=== PATIENT | male | born 1940 | race Caucasian/White ===

== ENCOUNTER 2017-06-23 10:23 | Inpatient (IN) ==
[2017-06-23] MEDS ORDERED: BUDESONIDE 0.5 MG/2 ML NEB RESP TX SCH (12:00)
[2017-06-23] MEDS: methylPREDNISolone SOD SUC 125 MG/2 ML VIAL IV SCH ×2 (12:30→18:03)
[2017-06-23] MEDS ORDERED: HYDROcod/ACETAMIN 7.5-325 MG/15 ML UDCUP PO PRN (12:31)
[2017-06-23 12:58] LABS: Basophils # 0.1 10*3/uL (0.0-0.2); Basophils % 0.4 % (0.0-0.8); Eosinophils # 0.3 10*3/uL (0.0-0.87); Eosinophils % 2.6 % (0.00-10.9); Hemoglobin 14.7 GM/DL (14.0-18.0); Immature Granulocytes % 0.4 %; Immature Granulocytes Absolute 0.05 #; Lymphocytes # 2.8 10*3/uL (1.4-4.0); Lymphocytes % 23.5 % (21.2-54.2); Mean Corpuscular HGB Conc 35.9 GM/DL (32-36); Mean Corpuscular Hemoglobin 34 PG (27-34); Mean Corpuscular Volume 95.1 FL (87-102); Mean Platelet Volume 8.9 FL (9.6-12.0); Monocytes # 0.9 10*3/uL (0.11-0.8); Monocytes % 7.3 % (1.7-12.7); Neutrophils # 7.8 10*3/uL (1.4-7.4); Neutrophils % 65.8 % (38.7-73.9); Platelet Count 176 T/CUMM (130-400); Red Blood Count 4.31 MC/CUMM (3.8-5.5); White Blood Count 11.8 T/CUMM (4-12)
[2017-06-23] MEDS: SODIUM CHLORIDE 0.45% 1,000 ML IV SCH (13:00)
[2017-06-23 13:29] LABS: Albumin 3.2 G/DL (3.4-5.0); Bilirubin,Total 0.6 MG/DL (0.2-1.0); Calcium 8.5 MG/DL (8.5-10.1); Osmolality,Calculated 280.5 MOS/KG (273-304); Potassium 3.6 MMOL/L (3.5-5.1); Total Protein 7.3 G/DL (6.4-8.3)
[2017-06-23] MEDS: PIPERACILLIN/TAZOBACTAM 3,375 MG in SODIUM CHLORIDE 0.9% 100 ML IV SCH ×2 (14:37→21:48)
[2017-06-23] MEDS: POTASSIUM IODIDE ORAL SOLN 1,000 MG/ML BOTTLE PO SCH ×3 (14:37→21:47)
[2017-06-23] MEDS ORDERED: GLUCAGON 1 MG VIAL IM PRN ×2 (15:56→21:16)
[2017-06-23] MEDS ORDERED: DEXTROSE 50% 25 GM/50 ML VIAL IV PRN ×2 (15:56→21:16)
[2017-06-23] MEDS ORDERED: INSULIN REGULAR 100 UNIT/ML SUBCUT SCH (16:30)
[2017-06-23] MEDS: LEVALBUTEROL 1.25 MG/3 ML NEB RESP TX PRN (20:16)
[2017-06-23] MEDS: GABAPENTIN 300 MG CAPSULE PO SCH (21:47)
[2017-06-23] MEDS: BUDESONIDE/FORMOTEROL 160-4.5 INHALER 6 GM INH SCH (21:47)
[2017-06-23] MEDS: TRAVOPROST 0.004% OPH SOLN 2.5 ML BOTTLE BOTH EYES SCH (21:47)
[2017-06-23] MEDS: Nintedanib Esylate [Ofev] 150 MG PO SCH (22:04)
[2017-06-23] MEDS: INSULIN REGULAR 100 UNIT/ML SUBCUT SCH (22:17)
[2017-06-24] MEDS: methylPREDNISolone SOD SUC 125 MG/2 ML VIAL IV SCH ×5 (00:16→23:01)
[2017-06-24] MEDS: PIPERACILLIN/TAZOBACTAM 3,375 MG in SODIUM CHLORIDE 0.9% 100 ML IV SCH ×3 (06:18→21:23)
[2017-06-24] MEDS: SODIUM CHLORIDE 0.45% 1,000 ML IV SCH ×2 (06:21→16:20)
[2017-06-24] MEDS ORDERED: INSULIN REGULAR 100 UNIT/ML SUBCUT SCH (07:30)
[2017-06-24] MEDS: Nintedanib Esylate [Ofev] 150 MG PO SCH ×2 (08:42→20:23)
[2017-06-24] MEDS: GABAPENTIN 300 MG CAPSULE PO SCH ×3 (08:42→20:19)
[2017-06-24] MEDS: BUDESONIDE/FORMOTEROL 160-4.5 INHALER 6 GM INH SCH ×2 (08:43→20:21)
[2017-06-24] MEDS: FLUTICASONE 50 MCG NASAL SPRAY 16 GM BOTTLE BOTH NARES SCH (08:44)
[2017-06-24] MEDS: POTASSIUM IODIDE ORAL SOLN 1,000 MG/ML BOTTLE PO SCH ×4 (08:44→20:21)
[2017-06-24] MEDS: INSULIN REGULAR 100 UNIT/ML SUBCUT SCH ×4 (08:44→21:21)
[2017-06-24] MEDS ORDERED: ALFUZOSIN 10 MG TABLET PO SCH ×2 (09:00→21:00)
[2017-06-24] MEDS ORDERED: LACTULOSE 20 GM/30 ML UDCUP PO PRN (09:46)
[2017-06-24] MEDS: LEVALBUTEROL 1.25 MG/3 ML NEB RESP TX PRN (16:28)
[2017-06-24] MEDS: TRAVOPROST 0.004% OPH SOLN 2.5 ML BOTTLE BOTH EYES SCH (20:21)
[2017-06-25] MEDS: PIPERACILLIN/TAZOBACTAM 3,375 MG in SODIUM CHLORIDE 0.9% 100 ML IV SCH (05:31)
[2017-06-25] MEDS: INSULIN REGULAR 100 UNIT/ML SUBCUT SCH ×2 (08:16→11:05)
[2017-06-25 08:25] VITALS: BP 118/71
[2017-06-25] MEDS: GABAPENTIN 300 MG CAPSULE PO SCH (08:35)
[2017-06-25] MEDS: Nintedanib Esylate [Ofev] 150 MG PO SCH (08:37)
[2017-06-25] MEDS: BUDESONIDE/FORMOTEROL 160-4.5 INHALER 6 GM INH SCH (08:37)
[2017-06-25] MEDS: FLUTICASONE 50 MCG NASAL SPRAY 16 GM BOTTLE BOTH NARES SCH (08:39)
[2017-06-25] MEDS: methylPREDNISolone SOD SUC 125 MG/2 ML VIAL IV SCH (08:41)
[2017-06-25] MEDS: POTASSIUM IODIDE ORAL SOLN 1,000 MG/ML BOTTLE PO SCH ×2 (08:46→08:47)
[2017-06-25] MEDS: LEVALBUTEROL 1.25 MG/3 ML NEB RESP TX PRN (09:58)
== END 2017-06-25 11:09 | disposition home or self-care (01) | DRG 198 ==
LOC: N.5E 12:26
PROVIDERS: ADMIT Internal Medicine Pulmonary Disease; ATTEND Internal Medicine Pulmonary Disease

== ENCOUNTER 2017-10-06 11:36 | Inpatient (IN) ==
[2017-10-06] MEDS ORDERED: methylPREDNISolone SOD SUC 125 MG/2 ML VIAL IV STA ×2 (11:39→13:46)
[2017-10-06] MEDS ORDERED: methylPREDNISolone SOD SUC 125 MG/2 ML VIAL ONE (11:41)
[2017-10-06] MEDS ORDERED: SODIUM CHLORIDE 0.9% 500 ML IV STA (11:43)
[2017-10-06 11:47] LABS: Basophils # 0.1 10*3/uL (0.0-0.2); Basophils % 0.3 % (0.0-0.8); Eosinophils # 0.2 10*3/uL (0.0-0.87); Eosinophils % 1.3 % (0.00-10.9); Hematocrit 40.7 VOL% (42.0-52.0); Hemoglobin 13.6 GM/DL (14.0-18.0); Immature Granulocytes % 0.7 %; Immature Granulocytes Absolute 0.13 #; Lymphocytes # 2.2 10*3/uL (1.4-4.0); Lymphocytes % 11.9 % (21.2-54.2); Mean Corpuscular HGB Conc 33.4 GM/DL (32-36); Mean Corpuscular Hemoglobin 35 PG (27-34); Mean Corpuscular Volume 104.1 FL (87-102); Mean Platelet Volume 8.4 FL (9.6-12.0); Monocytes # 0.9 10*3/uL (0.11-0.8); Monocytes % 4.7 % (1.7-12.7); Neutrophils # 14.9 10*3/uL (1.4-7.4); Neutrophils % 81.1 % (38.7-73.9); Platelet Count 193 T/CUMM (130-400); Red Blood Count 3.91 MC/CUMM (3.8-5.5); Red Cell Distribution Width 12.2 % (9.3-17.3); White Blood Count 18.4 T/CUMM (4-12)
[2017-10-06] MEDS ORDERED: PIPERACILLIN/TAZOBACTAM 3,375 MG in SODIUM CHLORIDE 0.9% 100 ML IV STA (11:47)
[2017-10-06] MEDS ORDERED: PIPERACILLIN/TAZOBACTAM 3,375 MG VIAL IV ONE (11:52)
[2017-10-06] MEDS ORDERED: ALBUTEROL NEB SOLN 5 MG/ML 20 ML/BOTTLE RESP TX SCH (12:00)
[2017-10-06 12:02] LABS: PT Patient Result 10.4 SECS; Partial Thromboplastin Time 23.9 SECS (0-40)
[2017-10-06 12:12] LABS: Alanine Aminotransferase 26 U/L (16-61); Albumin 3.1 G/DL (3.4-5.0); Alkaline Phosphatase 127 U/L (45-117); Aspartate Amino Transferase 29 U/L (0-37); Blood Urea Nitrogen 18 MG/DL (7-18); Calcium 8.5 MG/DL (8.5-10.1); Glucose 82 MG/DL (74-106); Osmolality,Calculated 275.7 MOS/KG (273-304); Potassium 4.3 MMOL/L (3.5-5.1); Sodium 138 MMOL/L (136-145); Total Protein 6.5 G/DL (6.4-8.3); Troponin I Only < 0.015 NG/ML (0.00-0.045)
[2017-10-06 12:24] LABS: ABG Base Excess 5.1 MMOL/L (-2.5-2.5); ABG HCO3 28.6 MMOL/L (20-26); ABG Oxygen Saturation 94.3 % (95-100); ABG PH 7.494 (7.35-7.45); ABG PO2 69.4 MM HG (80-95); ABG TCO2 29.7 MMOL/L (23-27)
[2017-10-06] MEDS ORDERED: ACETAMINOPHEN 500 MG TABLET ONE (12:31)
[2017-10-06 12:32] LABS: Apearance,Urine Slightly Hazy (Clear); Bilirubin,Urine Negative (Negative); Blood, Urine Negative (Negative); Glucose,Urine (UA) Negative (Negative); Ketones,Urine Negative (Negative); Mucus,Urine Occasional /LPF (Occasional); Nitrite,Urine Negative (Negative); Protein,Urine Negative; RBC,Urine 1 /HPF (0-4); Squamous Epithelial Cell,Urine Occasional /HPF (0-10); Urine Color Yellow (Yellow); Urine Specific Gravity 1.014 (1.001-1.035); WBC,Urine <1 /HPF (0-6)
[2017-10-06] MEDS ORDERED: SODIUM CHLORIDE 0.9% IV ONE (12:42)
[2017-10-06] MEDS ORDERED: AMINOPHYLLINE IV ONE (12:42)
[2017-10-06] MEDS ORDERED: AMINOPHYLLINE 500 MG in SODIUM CHLORIDE 0.9% 480 ML IV SCH (13:00)
[2017-10-06] MEDS ORDERED: ACETAMINOPHEN 500 MG TABLET PO STA (13:46)
[2017-10-06] MEDS ORDERED: ACETAMINOPHEN 325 MG TABLET PO PRN (14:42)
[2017-10-06] MEDS ORDERED: ALBUTEROL 2.5 MG/3 ML NEB RESP TX SCH (15:00)
[2017-10-06] MEDS: SODIUM CHLORIDE 0.9% 1,000 ML IV SCH (15:15)
[2017-10-06] MEDS: AMINOPHYLLINE 500 MG in SODIUM CHLORIDE 0.9% 480 ML IV SCH (15:16)
[2017-10-06] MEDS: ENOXAPARIN 60 MG/0.6 ML SYRINGE SUBCUT SCH (15:44)
[2017-10-06] MEDS: POTASSIUM IODIDE ORAL SOLN 1,000 MG/ML BOTTLE PO SCH ×2 (18:23→21:00)
[2017-10-06] MEDS: ALBUTEROL/IPRATROPIUM 3 ML NEB RESP TX SCH (19:24)
[2017-10-06 20:17] LABS: Troponin I Only 0.041 NG/ML (0.00-0.045)
[2017-10-06] MEDS: DOCUSATE SODIUM 100 MG CAPSULE PO SCH (20:43)
[2017-10-06] MEDS: TRAVOPROST 0.004% OPH SOLN 2.5 ML BOTTLE BOTH EYES SCH (20:43)
[2017-10-06] MEDS: methylPREDNISolone SOD SUC 125 MG/2 ML VIAL IV SCH (20:44)
[2017-10-06] MEDS: PIPERACILLIN/TAZOBACTAM 3,375 MG in SODIUM CHLORIDE 0.9% 100 ML IV SCH (21:05)
[2017-10-07] MEDS: ALBUTEROL/IPRATROPIUM 3 ML NEB RESP TX SCH ×4 (00:41→18:47)
[2017-10-07 03:27] LABS: Basophils % 0.1 % (0.0-0.8); Hematocrit 31.3 VOL% (42.0-52.0); Hemoglobin 11.1 GM/DL (14.0-18.0); Immature Granulocytes % 1.1 %; Immature Granulocytes Absolute 0.14 #; Lymphocytes # 0.3 10*3/uL (1.4-4.0); Mean Corpuscular HGB Conc 35.5 GM/DL (32-36); Mean Corpuscular Hemoglobin 36 PG (27-34); Mean Platelet Volume 8.8 FL (9.6-12.0); Monocytes # 0.2 10*3/uL (0.11-0.8); Monocytes % 1.1 % (1.7-12.7); Neutrophils # 12.7 10*3/uL (1.4-7.4); Neutrophils % 95.7 % (38.7-73.9); Platelet Count 138 T/CUMM (130-400); Red Cell Distribution Width 11.9 % (9.3-17.3); White Blood Count 13.2 T/CUMM (4-12)
[2017-10-07] MEDS: methylPREDNISolone SOD SUC 125 MG/2 ML VIAL IV SCH ×3 (03:48→21:05)
[2017-10-07 03:50] LABS: Calcium 7.8 MG/DL (8.5-10.1); Osmolality,Calculated 285.3 MOS/KG (273-304); Potassium 3.5 MMOL/L (3.5-5.1)
[2017-10-07 03:53] LABS: Troponin I Only 0.034 NG/ML (0.00-0.045)
[2017-10-07 04:32] LABS: Band Neutrophils 3 % (0-10); Lymphocytes 4 % (20-55); Macrocytosis 3+; Platelet Estimate Normal; Segmented Neutrophils 93 % (50-85); Total Cells Counted 100
[2017-10-07] MEDS: PIPERACILLIN/TAZOBACTAM 3,375 MG in SODIUM CHLORIDE 0.9% 100 ML IV SCH ×3 (05:50→23:21)
[2017-10-07] MEDS: SODIUM CHLORIDE 0.9% 1,000 ML IV SCH ×2 (05:50→23:20)
[2017-10-07] MEDS: POTASSIUM IODIDE ORAL SOLN 1,000 MG/ML BOTTLE PO SCH ×5 (05:51→21:04)
[2017-10-07] MEDS: PANTOPRAZOLE 40 MG TABLET PO SCH (08:33)
[2017-10-07] MEDS: DOCUSATE SODIUM 100 MG CAPSULE PO SCH ×2 (08:34→21:04)
[2017-10-07] MEDS ORDERED: TAMSULOSIN 0.4 MG CAPSULE PO SCH (09:00)
[2017-10-07] MEDS: BUDESONIDE 0.5 MG/2 ML NEB RESP TX SCH ×2 (09:33→19:48)
[2017-10-07 12:04] LABS: Troponin I Only 0.024 NG/ML (0.00-0.045)
[2017-10-07] MEDS: ENOXAPARIN 60 MG/0.6 ML SYRINGE SUBCUT SCH (14:19)
[2017-10-07] MEDS: AMINOPHYLLINE 500 MG in SODIUM CHLORIDE 0.9% 480 ML IV SCH (16:50)
[2017-10-07] MEDS ORDERED: ENOXAPARIN 30 MG/0.3 ML SYRINGE SUBCUT SCH (17:30)
[2017-10-07] MEDS ORDERED: ALBUTEROL 0.63 MG/3 ML NEB RESP TX PRN (17:43)
[2017-10-07] MEDS ORDERED: LEVALBUTEROL 0.63 MG/3 ML NEB RESP TX PRN (18:40)
[2017-10-07 20:20] LABS: Free T4 (Free Thyroxine) 0.93 NG/DL (0.76-1.46); Thyroid Stimulating Hormone 0.702 uIU/ml (0.358-3.74)
[2017-10-07] MEDS ORDERED: VANCOMYCIN INJ 1,000 MG in SODIUM CHLORIDE 0.9% 250 ML IV ONE (21:00)
[2017-10-07] MEDS: METOPROLOL TARTRATE 25 MG TABLET PO SCH (21:03)
[2017-10-07] MEDS: TAMSULOSIN 0.4 MG CAPSULE PO SCH (21:04)
[2017-10-07] MEDS: TRAVOPROST 0.004% OPH SOLN 2.5 ML BOTTLE BOTH EYES SCH (21:04)
[2017-10-08] MEDS: ALBUTEROL/IPRATROPIUM 3 ML NEB RESP TX SCH ×5 (00:02→19:22)
[2017-10-08] MEDS ORDERED: MORPHINE 4 MG/1 ML VIAL IV ONE (00:52)
[2017-10-08] MEDS ORDERED: FUROSEMIDE 40 MG/4 ML VIAL IV ONE ×2 (01:49→09:00)
[2017-10-08] MEDS ORDERED: POTASSIUM PHOS/SOD PHOS POWDER 250 MG PACK PO ONE (03:28)
[2017-10-08] MEDS: methylPREDNISolone SOD SUC 125 MG/2 ML VIAL IV SCH ×3 (06:15→20:29)
[2017-10-08] MEDS: POTASSIUM IODIDE ORAL SOLN 1,000 MG/ML BOTTLE PO SCH ×5 (06:19→20:32)
[2017-10-08] MEDS: MORPHINE 4 MG/1 ML VIAL IV PRN ×9 (06:30→22:02)
[2017-10-08 07:01] LABS: Basophils % 0.1 % (0.0-0.8); Hematocrit 36.8 VOL% (42.0-52.0); Immature Granulocytes % 1.5 %; Immature Granulocytes Absolute 0.45 #; Lymphocytes # 0.5 10*3/uL (1.4-4.0); Lymphocytes % 1.7 % (21.2-54.2); Mean Corpuscular HGB Conc 35.3 GM/DL (32-36); Mean Corpuscular Hemoglobin 35 PG (27-34); Mean Platelet Volume 8.9 FL (9.6-12.0); Monocytes # 0.8 10*3/uL (0.11-0.8); Monocytes % 2.6 % (1.7-12.7); Neutrophils # 28.3 10*3/uL (1.4-7.4); Neutrophils % 94.1 % (38.7-73.9); Platelet Count 171 T/CUMM (130-400); Red Blood Count 3.68 MC/CUMM (3.8-5.5); Red Cell Distribution Width 11.9 % (9.3-17.3); White Blood Count 30.1 T/CUMM (4-12)
[2017-10-08] MEDS: BUDESONIDE 0.5 MG/2 ML NEB RESP TX SCH ×3 (07:22→19:22)
[2017-10-08 07:31] LABS: Giant Platelets Few; Hypochromasia 1+; Lymphocytes 4 % (20-55); Platelet Estimate Normal; Segmented Neutrophils 93 % (50-85); Total Cells Counted 100
[2017-10-08 07:33] LABS: Calcium 8.7 MG/DL (8.5-10.1); Osmolality,Calculated 281.4 MOS/KG (273-304); Potassium 2.9 MMOL/L (3.5-5.1)
[2017-10-08 07:36] LABS: Vancomycin,Peak 8.2 UG/ML (18-26); Vancomycin,Trough 8.2 UG/ML (10.0-20.0)
[2017-10-08] MEDS: PIPERACILLIN/TAZOBACTAM 3,375 MG in SODIUM CHLORIDE 0.9% 100 ML IV SCH ×2 (08:12→15:15)
[2017-10-08] MEDS ORDERED: POTASSIUM CHLORIDE RIDER 10 MEQ in PREMIX 1 EACH IV ONE (08:14)
[2017-10-08] MEDS ORDERED: MORPHINE 10 MG/1 ML VIAL IV PRN (08:15)
[2017-10-08] MEDS: VANCOMYCIN INJ 1,000 MG in SODIUM CHLORIDE 0.9% 250 ML IV SCH ×2 (08:55→20:40)
[2017-10-08] MEDS: PANTOPRAZOLE 40 MG TABLET PO SCH (08:56)
[2017-10-08] MEDS: POTASSIUM CHLORIDE 10 MEQ TABLET PO SCH ×3 (08:56→20:28)
[2017-10-08] MEDS: METOPROLOL TARTRATE 25 MG TABLET PO SCH (08:56)
[2017-10-08] MEDS: TAMSULOSIN 0.4 MG CAPSULE PO SCH ×3 (08:56→20:37)
[2017-10-08] MEDS: DOCUSATE SODIUM 100 MG CAPSULE PO SCH ×2 (08:56→20:28)
[2017-10-08] MEDS ORDERED: DIGOXIN 0.5 MG/2 ML AMP IV ONE ×2 (09:00→15:55)
[2017-10-08] MEDS: BISACODYL 5 MG TABLET PO SCH (09:00)
[2017-10-08] MEDS ORDERED: AMIKACIN 1,000 MG in SODIUM CHLORIDE 0.9% 100 ML IV SCH (09:30)
[2017-10-08] MEDS: TOBRAMYCIN IV SCH (12:59)
[2017-10-08] MEDS: SODIUM CHLORIDE 0.9% IV SCH (12:59)
[2017-10-08] MEDS: ENOXAPARIN 30 MG/0.3 ML SYRINGE SUBCUT SCH (13:05)
[2017-10-08] MEDS ORDERED: MORPHINE 4 MG/1 ML VIAL IV PRN (15:00)
[2017-10-08] MEDS: TRAVOPROST 0.004% OPH SOLN 2.5 ML BOTTLE BOTH EYES SCH (20:38)
[2017-10-09] MEDS: PIPERACILLIN/TAZOBACTAM 3,375 MG in SODIUM CHLORIDE 0.9% 100 ML IV SCH ×4 (00:11→23:09)
[2017-10-09] MEDS: ALBUTEROL/IPRATROPIUM 3 ML NEB RESP TX SCH ×3 (01:18→11:59)
[2017-10-09] MEDS: methylPREDNISolone SOD SUC 125 MG/2 ML VIAL IV SCH (03:10)
[2017-10-09] MEDS: LORazepam 0.5 MG TABLET PO PRN ×3 (05:02→23:04)
[2017-10-09] MEDS: MORPHINE 4 MG/1 ML VIAL IV PRN ×6 (05:03→19:51)
[2017-10-09] MEDS ORDERED: methylPREDNISolone SOD SUC 125 MG/2 ML VIAL IV SCH (05:04)
[2017-10-09 06:32] LABS: Albumin 2.5 G/DL (3.4-5.0); Bilirubin,Total 1.2 MG/DL (0.2-1.0); Calcium 8.7 MG/DL (8.5-10.1); Osmolality,Calculated 287.3 MOS/KG (273-304); Potassium 3.5 MMOL/L (3.5-5.1); Total Protein 5.7 G/DL (6.4-8.3)
[2017-10-09 06:44] LABS: Vancomycin,Trough 14.1 UG/ML (10.0-20.0)
[2017-10-09] MEDS: BUDESONIDE 0.5 MG/2 ML NEB RESP TX SCH ×2 (07:36→19:36)
[2017-10-09] MEDS: VANCOMYCIN INJ 1,000 MG in SODIUM CHLORIDE 0.9% 250 ML IV SCH ×2 (08:46→21:06)
[2017-10-09] MEDS: POTASSIUM CHLORIDE 10 MEQ TABLET PO SCH ×3 (08:46→20:55)
[2017-10-09] MEDS: BISACODYL 5 MG TABLET PO SCH (08:47)
[2017-10-09] MEDS: PANTOPRAZOLE 40 MG TABLET PO SCH (08:47)
[2017-10-09] MEDS: DOCUSATE SODIUM 100 MG CAPSULE PO SCH ×2 (08:47→20:54)
[2017-10-09] MEDS: POTASSIUM IODIDE ORAL SOLN 1,000 MG/ML BOTTLE PO SCH ×4 (08:48→20:55)
[2017-10-09] MEDS: methylPREDNISolone SOD SUC 40 MG/1 ML VIAL IV SCH ×2 (11:46→20:55)
[2017-10-09] MEDS ORDERED: ALBUTEROL/IPRATROPIUM 3 ML NEB RESP TX PRN (12:43)
[2017-10-09] MEDS: TOBRAMYCIN IV SCH (12:56)
[2017-10-09] MEDS: SODIUM CHLORIDE 0.9% IV SCH (12:56)
[2017-10-09] MEDS: DIGOXIN 0.125 MG TABLET PO SCH (14:04)
[2017-10-09] MEDS: ENOXAPARIN 30 MG/0.3 ML SYRINGE SUBCUT SCH (14:04)
[2017-10-09] MEDS: LEVALBUTEROL 0.63 MG/3 ML NEB RESP TX SCH ×3 (15:14→23:35)
[2017-10-09] MEDS: TAMSULOSIN 0.4 MG CAPSULE PO SCH (20:55)
[2017-10-09] MEDS: TRAVOPROST 0.004% OPH SOLN 2.5 ML BOTTLE BOTH EYES SCH (20:55)
[2017-10-10] MEDS: methylPREDNISolone SOD SUC 40 MG/1 ML VIAL IV SCH ×3 (03:04→20:46)
[2017-10-10] MEDS: LEVALBUTEROL 0.63 MG/3 ML NEB RESP TX SCH ×3 (03:06→12:37)
[2017-10-10] MEDS: LORazepam 0.5 MG TABLET PO PRN ×3 (03:20→20:46)
[2017-10-10] MEDS: MORPHINE 4 MG/1 ML VIAL IV PRN ×5 (03:22→21:05)
[2017-10-10 06:55] LABS: Basophils % 0.1 % (0.0-0.8); Immature Granulocytes % 1.1 %; Immature Granulocytes Absolute 0.15 #; Lymphocytes # 0.3 10*3/uL (1.4-4.0); Lymphocytes % 2.3 % (21.2-54.2); Mean Corpuscular HGB Conc 34.3 GM/DL (32-36); Mean Corpuscular Hemoglobin 35 PG (27-34); Mean Corpuscular Volume 100.6 FL (87-102); Mean Platelet Volume 8.7 FL (9.6-12.0); Monocytes # 0.3 10*3/uL (0.11-0.8); Neutrophils # 13.4 10*3/uL (1.4-7.4); Neutrophils % 94.5 % (38.7-73.9); Platelet Count 132 T/CUMM (130-400); Red Blood Count 3.48 MC/CUMM (3.8-5.5); Red Cell Distribution Width 11.6 % (9.3-17.3); White Blood Count 14.2 T/CUMM (4-12)
[2017-10-10] MEDS: BUDESONIDE 0.5 MG/2 ML NEB RESP TX SCH (07:04)
[2017-10-10 07:19] LABS: Band Neutrophils 1 % (0-10); Hypochromasia 1+; Lymphocytes 2 % (20-55); Platelet Estimate Adequate; Segmented Neutrophils 95 % (50-85); Total Cells Counted 100
[2017-10-10 07:26] LABS: Albumin 2.2 G/DL (3.4-5.0); Bilirubin,Total 1.1 MG/DL (0.2-1.0); Calcium 8.2 MG/DL (8.5-10.1); Osmolality,Calculated 284.3 MOS/KG (273-304); Potassium 4.2 MMOL/L (3.5-5.1); Total Protein 5.1 G/DL (6.4-8.3)
[2017-10-10] MEDS: VANCOMYCIN INJ 1,000 MG in SODIUM CHLORIDE 0.9% 250 ML IV SCH ×2 (09:11→20:46)
[2017-10-10] MEDS: POTASSIUM CHLORIDE 10 MEQ TABLET PO SCH ×3 (09:12→20:46)
[2017-10-10] MEDS: PANTOPRAZOLE 40 MG TABLET PO SCH (09:12)
[2017-10-10] MEDS: MULTIVITAMIN (CENTRUM) TABLET PO SCH (09:12)
[2017-10-10] MEDS: DOCUSATE SODIUM 100 MG CAPSULE PO SCH ×2 (09:13→20:45)
[2017-10-10] MEDS: POTASSIUM IODIDE ORAL SOLN 1,000 MG/ML BOTTLE PO SCH ×4 (09:13→20:47)
[2017-10-10] MEDS: BISACODYL 5 MG TABLET PO SCH (09:13)
[2017-10-10] MEDS: PIPERACILLIN/TAZOBACTAM 3,375 MG in SODIUM CHLORIDE 0.9% 100 ML IV SCH ×2 (09:21→16:56)
[2017-10-10] MEDS ORDERED: LEVALBUTEROL 0.63 MG/3 ML NEB RESP TX PRN (11:31)
[2017-10-10] MEDS: SODIUM CHLORIDE 0.9% IV SCH (12:14)
[2017-10-10] MEDS: TOBRAMYCIN IV SCH (12:14)
[2017-10-10] MEDS: fentaNYL 25 MCG/HR PATCH TRANSDERM SCH ×2 (13:22→14:38)
[2017-10-10] MEDS: DIGOXIN 0.125 MG TABLET PO SCH (13:22)
[2017-10-10] MEDS: ENOXAPARIN 30 MG/0.3 ML SYRINGE SUBCUT SCH (14:32)
[2017-10-10] MEDS: TAMSULOSIN 0.4 MG CAPSULE PO SCH (20:46)
[2017-10-10] MEDS: TRAVOPROST 0.004% OPH SOLN 2.5 ML BOTTLE BOTH EYES SCH (20:47)
[2017-10-11] MEDS: PIPERACILLIN/TAZOBACTAM 3,375 MG in SODIUM CHLORIDE 0.9% 100 ML IV SCH ×4 (00:08→23:12)
[2017-10-11] MEDS: methylPREDNISolone SOD SUC 40 MG/1 ML VIAL IV SCH ×3 (04:02→20:39)
[2017-10-11] MEDS: MORPHINE 4 MG/1 ML VIAL IV PRN ×5 (06:45→19:25)
[2017-10-11] MEDS: POTASSIUM IODIDE ORAL SOLN 1,000 MG/ML BOTTLE PO SCH ×4 (08:06→21:13)
[2017-10-11] MEDS: MULTIVITAMIN (CENTRUM) TABLET PO SCH (08:07)
[2017-10-11] MEDS: PANTOPRAZOLE 40 MG TABLET PO SCH ×2 (08:07→20:39)
[2017-10-11] MEDS: POTASSIUM CHLORIDE 10 MEQ TABLET PO SCH ×3 (08:08→20:39)
[2017-10-11] MEDS: DOCUSATE SODIUM 100 MG CAPSULE PO SCH ×2 (08:08→20:38)
[2017-10-11] MEDS: BISACODYL 5 MG TABLET PO SCH (08:14)
[2017-10-11] MEDS: VANCOMYCIN INJ 1,000 MG in SODIUM CHLORIDE 0.9% 250 ML IV SCH ×2 (08:42→20:39)
[2017-10-11 09:44] LABS: Calcium 8.5 MG/DL (8.5-10.1); Osmolality,Calculated 281.4 MOS/KG (273-304)
[2017-10-11 09:45] LABS: Potassium 4.5 MMOL/L (3.5-5.1)
[2017-10-11] MEDS: LORazepam 0.5 MG TABLET PO PRN ×2 (10:27→20:38)
[2017-10-11] MEDS: TOBRAMYCIN IV SCH (12:20)
[2017-10-11] MEDS: SODIUM CHLORIDE 0.9% IV SCH (12:20)
[2017-10-11] MEDS: ENOXAPARIN 30 MG/0.3 ML SYRINGE SUBCUT SCH (13:08)
[2017-10-11] MEDS: DIGOXIN 0.125 MG TABLET PO SCH (13:08)
[2017-10-11] MEDS ORDERED: ALUMINUM/MAGNES/SIMETH MAX STR 30 ML UDCUP PO PRN (16:02)
[2017-10-11] MEDS: TAMSULOSIN 0.4 MG CAPSULE PO SCH (20:39)
[2017-10-11] MEDS: TRAVOPROST 0.004% OPH SOLN 2.5 ML BOTTLE BOTH EYES SCH (20:46)
[2017-10-12] MEDS: methylPREDNISolone SOD SUC 40 MG/1 ML VIAL IV SCH ×2 (03:13→12:39)
[2017-10-12] MEDS: MORPHINE 4 MG/1 ML VIAL IV PRN ×6 (04:48→21:10)
[2017-10-12] MEDS: LORazepam 0.5 MG TABLET PO PRN ×3 (05:46→21:03)
[2017-10-12 07:01] LABS: Basophils % 0.2 % (0.0-0.8); Eosinophils % 0.1 % (0.00-10.9); Hematocrit 40.2 VOL% (42.0-52.0); Hemoglobin 13.8 GM/DL (14.0-18.0); Immature Granulocytes % 0.8 %; Immature Granulocytes Absolute 0.13 #; Lymphocytes # 0.4 10*3/uL (1.4-4.0); Lymphocytes % 2.6 % (21.2-54.2); Mean Corpuscular HGB Conc 34.3 GM/DL (32-36); Mean Corpuscular Hemoglobin 34 PG (27-34); Mean Platelet Volume 8.7 FL (9.6-12.0); Monocytes # 0.3 10*3/uL (0.11-0.8); Monocytes % 1.7 % (1.7-12.7); Neutrophils # 14.8 10*3/uL (1.4-7.4); Neutrophils % 94.6 % (38.7-73.9); Platelet Count 169 T/CUMM (130-400); Red Blood Count 4.02 MC/CUMM (3.8-5.5); Red Cell Distribution Width 11.4 % (9.3-17.3); White Blood Count 15.6 T/CUMM (4-12)
[2017-10-12 07:12] LABS: Calcium 8.1 MG/DL (8.5-10.1)
[2017-10-12 07:13] LABS: Albumin 2.4 G/DL (3.4-5.0); Bilirubin,Total 1.6 MG/DL (0.2-1.0); Osmolality,Calculated 281.4 MOS/KG (273-304); Potassium 4.3 MMOL/L (3.5-5.1); Total Protein 5.6 G/DL (6.4-8.3)
[2017-10-12 07:25] LABS: Tobramycin,Trough 0.5 UG/ML (<2.0); Vancomycin,Trough 16.8 UG/ML (10.0-20.0)
[2017-10-12 07:50] LABS: Band Neutrophils 1 % (0-10); Hypochromasia 1+; Lymphocytes 2 % (20-55); Ovalocytes Slight; Platelet Estimate Normal; Segmented Neutrophils 95 % (50-85); Total Cells Counted 100
[2017-10-12] MEDS ORDERED: LORazepam 0.5 MG TABLET PO PRN (09:08)
[2017-10-12] MEDS: POTASSIUM IODIDE ORAL SOLN 1,000 MG/ML BOTTLE PO SCH ×4 (09:11→21:02)
[2017-10-12] MEDS: PIPERACILLIN/TAZOBACTAM 3,375 MG in SODIUM CHLORIDE 0.9% 100 ML IV SCH ×2 (09:12→16:55)
[2017-10-12] MEDS: VANCOMYCIN INJ 1,000 MG in SODIUM CHLORIDE 0.9% 250 ML IV SCH (09:13)
[2017-10-12] MEDS: POTASSIUM CHLORIDE 10 MEQ TABLET PO SCH ×3 (09:14→21:02)
[2017-10-12] MEDS: MULTIVITAMIN (CENTRUM) TABLET PO SCH (09:14)
[2017-10-12] MEDS: PANTOPRAZOLE 40 MG TABLET PO SCH ×2 (09:14→21:02)
[2017-10-12] MEDS: BISACODYL 5 MG TABLET PO SCH (09:14)
[2017-10-12] MEDS: fentaNYL 12 MCG/HR PATCH TRANSDERM SCH (09:40)
[2017-10-12] MEDS: DOCUSATE SODIUM 100 MG CAPSULE PO SCH ×2 (11:19→20:56)
[2017-10-12] MEDS: LEVOFLOXACIN INJ 500 MG in PREMIX 1 EACH IV SCH (11:26)
[2017-10-12] MEDS: DIGOXIN 0.125 MG TABLET PO SCH (12:38)
[2017-10-12] MEDS ORDERED: LORazepam 0.5 MG TABLET PO SCH (13:00)
[2017-10-12] MEDS: ENOXAPARIN 30 MG/0.3 ML SYRINGE SUBCUT SCH (14:58)
[2017-10-12] MEDS: methylPREDNISolone SOD SUC 125 MG/2 ML VIAL IV SCH (21:02)
[2017-10-12] MEDS: ESCITALOPRAM 10 MG TABLET PO SCH (21:02)
[2017-10-12] MEDS: TRAVOPROST 0.004% OPH SOLN 2.5 ML BOTTLE BOTH EYES SCH (21:02)
[2017-10-12] MEDS: TAMSULOSIN 0.4 MG CAPSULE PO SCH (21:02)
[2017-10-13] MEDS: methylPREDNISolone SOD SUC 40 MG/1 ML VIAL IV SCH (01:16)
[2017-10-13] MEDS: LORazepam 0.5 MG TABLET PO PRN ×2 (05:34→18:46)
[2017-10-13] MEDS: methylPREDNISolone SOD SUC 125 MG/2 ML VIAL IV SCH ×3 (05:35→20:44)
[2017-10-13] MEDS: MORPHINE 4 MG/1 ML VIAL IV PRN ×3 (05:43→19:32)
[2017-10-13] MEDS: LEVOFLOXACIN INJ 500 MG in PREMIX 1 EACH IV SCH (08:21)
[2017-10-13] MEDS: PANTOPRAZOLE 40 MG TABLET PO SCH ×2 (08:21→20:41)
[2017-10-13] MEDS: DOCUSATE SODIUM 100 MG CAPSULE PO SCH ×2 (08:21→20:43)
[2017-10-13] MEDS: ESCITALOPRAM 10 MG TABLET PO SCH (08:21)
[2017-10-13] MEDS: POTASSIUM CHLORIDE 10 MEQ TABLET PO SCH ×3 (08:21→20:41)
[2017-10-13] MEDS: MULTIVITAMIN (CENTRUM) TABLET PO SCH (08:21)
[2017-10-13] MEDS: POTASSIUM IODIDE ORAL SOLN 1,000 MG/ML BOTTLE PO SCH ×4 (08:28→20:41)
[2017-10-13] MEDS: BISACODYL 5 MG TABLET PO SCH (08:29)
[2017-10-13] MEDS ORDERED: fentaNYL 25 MCG/HR PATCH TRANSDERM SCH (09:00)
[2017-10-13] MEDS: BISACODYL 10 MG SUPP RECTAL PRN (10:19)
[2017-10-13] MEDS ORDERED: MORPHINE 4 MG/1 ML VIAL IV ONE (10:39)
[2017-10-13] MEDS: ENOXAPARIN 30 MG/0.3 ML SYRINGE SUBCUT SCH (13:17)
[2017-10-13] MEDS: DIGOXIN 0.125 MG TABLET PO SCH (13:17)
[2017-10-13] MEDS: TAMSULOSIN 0.4 MG CAPSULE PO SCH (20:40)
[2017-10-13] MEDS: TRAVOPROST 0.004% OPH SOLN 2.5 ML BOTTLE BOTH EYES SCH (20:43)
[2017-10-14] MEDS: methylPREDNISolone SOD SUC 125 MG/2 ML VIAL IV SCH ×3 (04:21→20:13)
[2017-10-14] MEDS: MORPHINE 4 MG/1 ML VIAL IV PRN ×4 (04:54→20:16)
[2017-10-14] MEDS: LORazepam 0.5 MG TABLET PO PRN ×2 (06:24→18:00)
[2017-10-14 07:21] LABS: Basophils % 0.1 % (0.0-0.8); Hematocrit 40.1 VOL% (42.0-52.0); Immature Granulocytes % 1.7 %; Immature Granulocytes Absolute 0.28 #; Lymphocytes # 0.5 10*3/uL (1.4-4.0); Lymphocytes % 2.9 % (21.2-54.2); Mean Corpuscular HGB Conc 34.9 GM/DL (32-36); Mean Corpuscular Hemoglobin 35 PG (27-34); Mean Platelet Volume 8.8 FL (9.6-12.0); Monocytes # 0.4 10*3/uL (0.11-0.8); Monocytes % 2.2 % (1.7-12.7); Neutrophils # 15.4 10*3/uL (1.4-7.4); Neutrophils % 93.1 % (38.7-73.9); Platelet Count 212 T/CUMM (130-400); Red Blood Count 4.05 MC/CUMM (3.8-5.5); Red Cell Distribution Width 11.4 % (9.3-17.3); White Blood Count 16.5 T/CUMM (4-12)
[2017-10-14 07:40] LABS: Lymphocytes 2 % (20-55); Segmented Neutrophils 95 % (50-85); Total Cells Counted 100
[2017-10-14 07:41] LABS: Giant Platelets Few; Hypochromasia 1+; Ovalocytes Slight; Platelet Estimate Adequate
[2017-10-14 07:48] LABS: Calcium 8.6 MG/DL (8.5-10.1)
[2017-10-14 07:49] LABS: Osmolality,Calculated 278.7 MOS/KG (273-304); Potassium 4.4 MMOL/L (3.5-5.1)
[2017-10-14 08:00] LABS: Albumin 2.5 G/DL (3.4-5.0); Bilirubin,Total 0.6 MG/DL (0.2-1.0); Calcium 8.5 MG/DL (8.5-10.1); Osmolality,Calculated 277.8 MOS/KG (273-304); Potassium 4.4 MMOL/L (3.5-5.1); Total Protein 5.9 G/DL (6.4-8.3)
[2017-10-14] MEDS: POTASSIUM CHLORIDE 10 MEQ TABLET PO SCH ×2 (08:34→16:24)
[2017-10-14] MEDS: PANTOPRAZOLE 40 MG TABLET PO SCH ×2 (08:34→20:10)
[2017-10-14] MEDS: MULTIVITAMIN (CENTRUM) TABLET PO SCH (08:34)
[2017-10-14] MEDS: POTASSIUM IODIDE ORAL SOLN 1,000 MG/ML BOTTLE PO SCH ×4 (08:35→20:10)
[2017-10-14] MEDS: ESCITALOPRAM 10 MG TABLET PO SCH (08:35)
[2017-10-14] MEDS: BISACODYL 5 MG TABLET PO SCH (08:35)
[2017-10-14] MEDS: LEVOFLOXACIN INJ 500 MG in PREMIX 1 EACH IV SCH (08:35)
[2017-10-14] MEDS: DOCUSATE SODIUM 100 MG CAPSULE PO SCH ×2 (08:35→20:12)
[2017-10-14] MEDS: ONDANSETRON 4 MG/2 ML VIAL IV PRN (13:17)
[2017-10-14] MEDS: ENOXAPARIN 30 MG/0.3 ML SYRINGE SUBCUT SCH ×2 (13:18→16:24)
[2017-10-14] MEDS: DIGOXIN 0.125 MG TABLET PO SCH ×2 (13:29→16:23)
[2017-10-14] MEDS: TAMSULOSIN 0.4 MG CAPSULE PO SCH (20:10)
[2017-10-14] MEDS: TRAVOPROST 0.004% OPH SOLN 2.5 ML BOTTLE BOTH EYES SCH (20:12)
[2017-10-15] MEDS: LORazepam 0.5 MG TABLET PO PRN ×2 (04:08→20:10)
[2017-10-15] MEDS: methylPREDNISolone SOD SUC 125 MG/2 ML VIAL IV SCH ×3 (04:15→20:09)
[2017-10-15] MEDS: DOCUSATE SODIUM 100 MG CAPSULE PO SCH ×2 (09:14→20:10)
[2017-10-15] MEDS: BISACODYL 5 MG TABLET PO SCH (09:14)
[2017-10-15] MEDS: MULTIVITAMIN (CENTRUM) TABLET PO SCH (09:14)
[2017-10-15] MEDS: LEVOFLOXACIN INJ 500 MG in PREMIX 1 EACH IV SCH (09:14)
[2017-10-15] MEDS: PANTOPRAZOLE 40 MG TABLET PO SCH ×2 (09:14→20:10)
[2017-10-15] MEDS: ESCITALOPRAM 10 MG TABLET PO SCH (09:14)
[2017-10-15] MEDS: fentaNYL 12 MCG/HR PATCH TRANSDERM SCH (09:15)
[2017-10-15] MEDS: POTASSIUM IODIDE ORAL SOLN 1,000 MG/ML BOTTLE PO SCH ×4 (09:15→20:10)
[2017-10-15] MEDS: MORPHINE 4 MG/1 ML VIAL IV PRN ×3 (09:20→20:11)
[2017-10-15] MEDS: ONDANSETRON 4 MG/2 ML VIAL IV PRN (09:32)
[2017-10-15] MEDS: ENOXAPARIN 30 MG/0.3 ML SYRINGE SUBCUT SCH (14:29)
[2017-10-15] MEDS: TAMSULOSIN 0.4 MG CAPSULE PO SCH (20:10)
[2017-10-15] MEDS: TRAVOPROST 0.004% OPH SOLN 2.5 ML BOTTLE BOTH EYES SCH (20:11)
[2017-10-16] MEDS: methylPREDNISolone SOD SUC 125 MG/2 ML VIAL IV SCH ×3 (04:12→20:39)
[2017-10-16] MEDS: MORPHINE 4 MG/1 ML VIAL IV PRN ×2 (04:14→10:27)
[2017-10-16] MEDS: LORazepam 0.5 MG TABLET PO PRN ×3 (04:15→14:54)
[2017-10-16] MEDS: POTASSIUM IODIDE ORAL SOLN 1,000 MG/ML BOTTLE PO SCH ×4 (09:08→20:39)
[2017-10-16] MEDS: ESCITALOPRAM 10 MG TABLET PO SCH (09:09)
[2017-10-16] MEDS: MULTIVITAMIN (CENTRUM) TABLET PO SCH (09:10)
[2017-10-16] MEDS: PANTOPRAZOLE 40 MG TABLET PO SCH ×2 (09:10→20:39)
[2017-10-16] MEDS: BISACODYL 5 MG TABLET PO SCH (09:10)
[2017-10-16] MEDS: LEVOFLOXACIN INJ 500 MG in PREMIX 1 EACH IV SCH (09:15)
[2017-10-16] MEDS: DOCUSATE SODIUM 100 MG CAPSULE PO SCH ×2 (09:15→20:39)
[2017-10-16] MEDS: BISACODYL 10 MG SUPP RECTAL PRN (10:28)
[2017-10-16] MEDS: ENOXAPARIN 30 MG/0.3 ML SYRINGE SUBCUT SCH (13:51)
[2017-10-16] MEDS: TRAVOPROST 0.004% OPH SOLN 2.5 ML BOTTLE BOTH EYES SCH (20:39)
[2017-10-16] MEDS: TAMSULOSIN 0.4 MG CAPSULE PO SCH (20:39)
[2017-10-17] MEDS: LORazepam 0.5 MG TABLET PO PRN ×2 (00:32→10:59)
[2017-10-17] MEDS: MORPHINE 4 MG/1 ML VIAL IV PRN ×4 (03:27→18:39)
[2017-10-17 05:58] LABS: Basophils % 0.1 % (0.0-0.8); Hematocrit 39.2 VOL% (42.0-52.0); Hemoglobin 13.6 GM/DL (14.0-18.0); Immature Granulocytes % 2.1 %; Immature Granulocytes Absolute 0.38 #; Lymphocytes # 0.5 10*3/uL (1.4-4.0); Lymphocytes % 2.9 % (21.2-54.2); Mean Corpuscular HGB Conc 34.7 GM/DL (32-36); Mean Corpuscular Hemoglobin 34 PG (27-34); Mean Corpuscular Volume 97.5 FL (87-102); Monocytes # 0.6 10*3/uL (0.11-0.8); Monocytes % 3.4 % (1.7-12.7); Neutrophils # 16.9 10*3/uL (1.4-7.4); Neutrophils % 91.5 % (38.7-73.9); Platelet Count 208 T/CUMM (130-400); Red Blood Count 4.02 MC/CUMM (3.8-5.5); Red Cell Distribution Width 11.3 % (9.3-17.3); White Blood Count 18.5 T/CUMM (4-12)
[2017-10-17] MEDS: methylPREDNISolone SOD SUC 125 MG/2 ML VIAL IV SCH (06:05)
[2017-10-17 06:19] LABS: Albumin 2.3 G/DL (3.4-5.0); Bilirubin,Total 0.7 MG/DL (0.2-1.0); Calcium 8.4 MG/DL (8.5-10.1); Potassium 3.9 MMOL/L (3.5-5.1); Total Protein 5.4 G/DL (6.4-8.3)
[2017-10-17 06:22] LABS: Hypochromasia 2+; Lymphocytes 2 % (20-55); Macrocytosis 1+; Platelet Estimate Adequate; Segmented Neutrophils 93 % (50-85); Total Cells Counted 100
[2017-10-17] MEDS: MULTIVITAMIN (CENTRUM) TABLET PO SCH (08:43)
[2017-10-17] MEDS: DOCUSATE SODIUM 100 MG CAPSULE PO SCH ×2 (08:43→20:46)
[2017-10-17] MEDS: PANTOPRAZOLE 40 MG TABLET PO SCH ×2 (08:43→20:46)
[2017-10-17] MEDS: ESCITALOPRAM 10 MG TABLET PO SCH (08:43)
[2017-10-17] MEDS: BISACODYL 5 MG TABLET PO SCH (08:44)
[2017-10-17] MEDS: ONDANSETRON 4 MG/2 ML VIAL IV PRN ×2 (08:48→17:40)
[2017-10-17] MEDS: POTASSIUM IODIDE ORAL SOLN 1,000 MG/ML BOTTLE PO SCH ×4 (09:15→20:46)
[2017-10-17] MEDS ORDERED: methylPREDNISolone SOD SUC 40 MG/1 ML VIAL ONE (12:46)
[2017-10-17] MEDS: methylPREDNISolone SOD SUC 40 MG/1 ML VIAL IV SCH ×3 (12:50→21:28)
[2017-10-17] MEDS: ENOXAPARIN 30 MG/0.3 ML SYRINGE SUBCUT SCH ×2 (12:50→14:04)
[2017-10-17] MEDS ORDERED: LORazepam 2 MG/1 ML VIAL ONE (18:45)
[2017-10-17] MEDS: LORazepam 2 MG/1 ML VIAL IV PRN (18:50)
[2017-10-17] MEDS: TRAVOPROST 0.004% OPH SOLN 2.5 ML BOTTLE BOTH EYES SCH (20:46)
[2017-10-17] MEDS: TAMSULOSIN 0.4 MG CAPSULE PO SCH (20:46)
[2017-10-18] MEDS: MORPHINE 4 MG/1 ML VIAL IV PRN ×3 (04:24→17:19)
[2017-10-18] MEDS: LORazepam 2 MG/1 ML VIAL IV PRN ×3 (04:29→20:21)
[2017-10-18] MEDS: methylPREDNISolone SOD SUC 40 MG/1 ML VIAL IV SCH ×3 (05:13→22:26)
[2017-10-18] MEDS ORDERED: fentaNYL 25 MCG/HR PATCH TRANSDERM SCH (09:00)
[2017-10-18] MEDS: ESCITALOPRAM 10 MG TABLET PO SCH (09:14)
[2017-10-18] MEDS: PANTOPRAZOLE 40 MG TABLET PO SCH ×2 (09:14→20:16)
[2017-10-18] MEDS: MULTIVITAMIN (CENTRUM) TABLET PO SCH (09:14)
[2017-10-18] MEDS: BISACODYL 5 MG TABLET PO SCH (09:15)
[2017-10-18] MEDS: POTASSIUM IODIDE ORAL SOLN 1,000 MG/ML BOTTLE PO SCH ×4 (09:16→20:18)
[2017-10-18] MEDS: DOCUSATE SODIUM 100 MG CAPSULE PO SCH ×2 (09:22→20:18)
[2017-10-18] MEDS: ENOXAPARIN 30 MG/0.3 ML SYRINGE SUBCUT SCH (17:19)
[2017-10-18] MEDS: ONDANSETRON 4 MG/2 ML VIAL IV PRN (17:26)
[2017-10-18] MEDS: TAMSULOSIN 0.4 MG CAPSULE PO SCH (20:16)
[2017-10-18] MEDS: TRAVOPROST 0.004% OPH SOLN 2.5 ML BOTTLE BOTH EYES SCH (20:18)
[2017-10-19] MEDS: MORPHINE 4 MG/1 ML VIAL IV PRN ×4 (05:12→23:38)
[2017-10-19] MEDS: methylPREDNISolone SOD SUC 40 MG/1 ML VIAL IV SCH ×3 (05:41→21:07)
[2017-10-19] MEDS ORDERED: methylPREDNISolone SOD SUC 40 MG/1 ML VIAL IV SCH (07:00)
[2017-10-19] MEDS: DOCUSATE SODIUM 100 MG CAPSULE PO SCH ×2 (09:02→21:08)
[2017-10-19] MEDS: ESCITALOPRAM 10 MG TABLET PO SCH (09:11)
[2017-10-19] MEDS: POTASSIUM IODIDE ORAL SOLN 1,000 MG/ML BOTTLE PO SCH ×5 (09:11→21:00)
[2017-10-19] MEDS: MULTIVITAMIN (CENTRUM) TABLET PO SCH (09:11)
[2017-10-19] MEDS: BISACODYL 5 MG TABLET PO SCH (09:11)
[2017-10-19] MEDS: PANTOPRAZOLE 40 MG TABLET PO SCH ×2 (09:11→21:00)
[2017-10-19] MEDS: LORazepam 2 MG/1 ML VIAL IV PRN ×2 (13:50→23:42)
[2017-10-19] MEDS: TAMSULOSIN 0.4 MG CAPSULE PO SCH (21:00)
[2017-10-19] MEDS: TRAVOPROST 0.004% OPH SOLN 2.5 ML BOTTLE BOTH EYES SCH (21:06)
[2017-10-20] MEDS: methylPREDNISolone SOD SUC 40 MG/1 ML VIAL IV SCH ×2 (05:50→15:49)
[2017-10-20] MEDS ORDERED: MORPHINE 4 MG/1 ML VIAL IV PRN ×2 (06:00→12:08)
[2017-10-20] MEDS: LORazepam 2 MG/1 ML VIAL IV PRN ×3 (06:41→23:26)
[2017-10-20] MEDS: MORPHINE 4 MG/1 ML VIAL IV SCH ×4 (09:19→20:59)
[2017-10-20] MEDS: DOCUSATE SODIUM 100 MG CAPSULE PO SCH ×2 (12:03→20:59)
[2017-10-20] MEDS: LORazepam 2 MG/1 ML VIAL IV SCH ×3 (12:03→18:40)
[2017-10-20] MEDS: MULTIVITAMIN (CENTRUM) TABLET PO SCH (12:03)
[2017-10-20] MEDS: ESCITALOPRAM 10 MG TABLET PO SCH (12:04)
[2017-10-20] MEDS: BISACODYL 5 MG TABLET PO SCH (12:04)
[2017-10-20] MEDS: POTASSIUM IODIDE ORAL SOLN 1,000 MG/ML BOTTLE PO SCH ×3 (12:04→18:57)
[2017-10-20] MEDS: PANTOPRAZOLE 40 MG TABLET PO SCH (12:04)
[2017-10-20] MEDS ORDERED: fentaNYL 50 MCG/HR PATCH TRANSDERM SCH (14:00)
[2017-10-20] MEDS: TRAVOPROST 0.004% OPH SOLN 2.5 ML BOTTLE BOTH EYES SCH (20:59)
[2017-10-21] MEDS: MORPHINE 4 MG/1 ML VIAL IV SCH ×9 (00:47→23:06)
[2017-10-21] MEDS: LORazepam 2 MG/1 ML VIAL IV SCH ×8 (00:48→23:07)
[2017-10-21 02:21] VITALS: BP 101/68
[2017-10-21] MEDS: LORazepam 2 MG/1 ML VIAL IV PRN (05:02)
[2017-10-21] MEDS: BISACODYL 5 MG TABLET PO SCH (08:07)
[2017-10-21] MEDS: MULTIVITAMIN (CENTRUM) TABLET PO SCH (08:07)
[2017-10-21] MEDS: DOCUSATE SODIUM 100 MG CAPSULE PO SCH ×2 (08:07→20:21)
[2017-10-21] MEDS: TRAVOPROST 0.004% OPH SOLN 2.5 ML BOTTLE BOTH EYES SCH (20:21)
[2017-10-22] MEDS: MORPHINE 4 MG/1 ML VIAL IV PRN ×2 (01:32→04:15)
[2017-10-22] MEDS: LORazepam 2 MG/1 ML VIAL IV SCH ×11 (02:08→22:02)
[2017-10-22] MEDS: MORPHINE 4 MG/1 ML VIAL IV SCH ×6 (02:08→12:27)
[2017-10-22] MEDS ORDERED: LORazepam 2 MG/1 ML VIAL IV SCH (06:00)
[2017-10-22] MEDS: MULTIVITAMIN (CENTRUM) TABLET PO SCH (08:29)
[2017-10-22] MEDS: BISACODYL 5 MG TABLET PO SCH (08:30)
[2017-10-22] MEDS: DOCUSATE SODIUM 100 MG CAPSULE PO SCH ×2 (08:30→20:25)
[2017-10-22] MEDS: MORPHINE 10 MG/1 ML VIAL IV SCH ×5 (14:21→22:07)
[2017-10-22] MEDS: TRAVOPROST 0.004% OPH SOLN 2.5 ML BOTTLE BOTH EYES SCH (20:25)
[2017-10-23] MEDS: LORazepam 2 MG/1 ML VIAL IV SCH ×2 (00:08→02:17)
[2017-10-23] MEDS: MORPHINE 10 MG/1 ML VIAL IV SCH ×2 (00:08→02:18)
== END 2017-10-23 02:26 | disposition expired | DRG 189 ==
LOC: N.ED 11:36 → N.EDINP 12:46 → N.5E 14:30
PROVIDERS: ADMIT Internal Medicine Pulmonary Disease; ATTEND Internal Medicine Pulmonary Disease